=== PATIENT | male | born 1995 | race African-American/Black ===

== ENCOUNTER 2017-05-20 12:05 | Emergency (ER) | payer MEDICAID ==
[~2017-05-20] VITALS: Ht 170.2 cm; Wt 85.0 kg
[2017-05-20 12:06] VITALS: BP 140/74
[2017-05-20] MEDS ORDERED: ACETAMINOPHEN 500MG TABLET PO ONE (13:45)
== END 2017-05-20 14:20 | disposition home or self-care (01) ==
LOC: ER 12:19
DX: F41.9 Anxiety disorder, unspecified (principal); F32.9 Major depressive disorder, single episode, unspecified; Z90.49 Acquired absence of other specified parts of digestive tract
CPT/HCPCS: 93005; 99284

== ENCOUNTER 2017-12-10 21:24 | Emergency (ER) | payer MEDICAID ==
[~2017-12-10] VITALS: Ht 167.6 cm; Wt 88.8 kg
[2017-12-11] MEDS ORDERED: KETOROLAC 30MG/ML VIAL IM ONE (01:30)
[2017-12-11 02:44] VITALS: BP 120/62
== END 2017-12-11 02:39 | disposition home or self-care (01) ==
LOC: ER 12-11 01:15
DX: S30.0XXA Contusion of lower back and pelvis, initial encounter (principal); X58.XXXA Exposure to other specified factors, initial encounter; Y93.9 Activity, unspecified; Y92.9 Unspecified place or not applicable
CPT/HCPCS: 72100; 96372; 99284; J1885